=== PATIENT | male | born 1955 ===

== ENCOUNTER 2021-09-11 07:58 | Day surgery (SDC) | payer OTHER ==
[~2021-09-11] VITALS: Ht 172.7 cm; Wt 61.4 kg
[2021-09-11] MEDS ORDERED: FLOMAX 0.40.4 MG/CAP PO (08:33)
[2021-09-11 08:35] VITALS: BP 130/86; PULSE 120; TEMP 97.3
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
[2021-09-11] MEDS ORDERED: NORCO 325 MG-51 TAB PO (13:34)
[2021-09-11 13:50] VITALS: BP 130/82; PULSE 88; TEMP 98
--- NOTE | 2021-09-11 13:50 | NUR ---
COFFEE AND MUFFIN PROVIDED.
[2021-09-11 14:05] VITALS: BP 122/70; PULSE 82
[2021-09-11 14:20] VITALS: BP 124/85; PULSE 94
--- NOTE | 2021-09-11 14:20 | NUR ---
REVIEWED ALL DISCHARGE INSTRUCTIONS AND EDUCATION MATERIAL. PT AND VERBALIZED UNDERSTANDING. DEMONSTRATED HOW TO REINFORCE DRESSING IF NEEDED. INSTRUCTED PT AND TO CALL DR OFFICE IF BLEEDING DOES NOT SLOW AND WHEN TO SEEK MEDICAL ATTENTION. ANSWERED ALL QUESTIONS TO PT AND WIFES SATISFACTION.
--- NOTE | 2021-09-11 15:00 | NUR ---
1350 PT RETURNED TO BAY 1 VIA CART. ALERT AND ORIENTED. POSTOP VITALS STARTED, MONITORS ATTACHED AND ALARMS SET. DRESSING ON LEFT ARM IS CLEAN AND DRY. DRESSING ON BACK HAS TWO SPOTS OF SANGUNEOUS DRAINAGE, ONE DIME SIZE AND ONE HALF DOLLAR SIZE, BOARDERS TRACED. PT DENIES PAIN OR NAUSEA. 1405 PT SITTING LOW SAN. ALERT AND ORIENTED. TOLERATING FOOD AND DRINK WELL. DIME SIZED DRAINAGE ON BACK DRESSING IS NOW SIZE OF A QUARTER. DRESSING REINFORCED WITH 4 X 4 GAZE AND MEDITAPE. 1420 PT UP TO RESTROOM, UNABLE TO VOID. FLUIDS INCREASED AND PT ALLOWED TO REST. NO SIGNS OF DRAINAGE ON BACK REINFORCED DRESSING. 1515 PT UP TO RESTROOM, ABLE TO VOID. NO SIGNS OF DRAINAGE ON BACK DRESSING. IV REMOVED WITHOUT COMPLICATION. PT ALLOWED TO DRESS. 1540 PT TRANSFERED TO PERSONAL VEHICLE VIA WHEEL CHAIR TO BE DRIVEN HOME BY . 14
== END 2021-09-11 15:40 | disposition home or self-care (01) ==
LOC: SDCO 07:58
DX: C44.519 Basal cell carcinoma of skin of other part of trunk (principal); C44.619 Basal cell carcinoma of skin of left upper limb, including shoulder; L98.429 Non-pressure chronic ulcer of back with unspecified severity; K21.9 Gastro-esophageal reflux disease without esophagitis; H91.90 Unspecified hearing loss, unspecified ear; C61 Malignant neoplasm of prostate; R33.8 Other retention of urine; F17.210 Nicotine dependence, cigarettes, uncomplicated
CPT/HCPCS: J0690; J1100; J2370; J2405; J2704; J3010; J7120

== ENCOUNTER 2023-06-26 09:55 | Outpatient (RCR) | payer OTHER ==
[2023-06-26] VITALS (15 sets, daily range): BP systolic 125–161; BP diastolic 71–88; PULSE 66–97; TEMP 97.7–99.3
[~2023-06-26] VITALS: Ht 172.7 cm; Wt 56.6 kg
[~2023-06-26 09:55] MED LIST: FLOMAX 0.40.4 MG/CAP PO; NORCO 325 MG-51 TAB PO; ONE-A-DAY ESSE1 EACH PO
[2023-06-26] MEDS ORDERED: CALCIUM CARBON500 M1 PO (10:47)
[2023-06-26] MEDS ORDERED: ZOFRAN 4MG T4 MG/TAB PO (10:48)
== END 2023-06-26 17:48 | disposition home or self-care (01) ==
LOC: EUO 09:55
DX: C61 Malignant neoplasm of prostate (principal)
CPT/HCPCS: J0612; J1644; J7050; P9016

== ENCOUNTER 2023-07-06 22:21 | Inpatient (IN) | payer OTHER ==
[~2023-07-06] VITALS: Ht 175.3 cm; Wt 62.0 kg
[2023-07-06] VITALS (8 sets, daily range): BP systolic 64–119; BP diastolic 42–59; PULSE 67–112
[~2023-07-06 22:21] MED LIST changes: +CALCIUM CARBON500 M1 PO; +ZOFRAN 4MG T4 MG/TAB PO
[2023-07-06] MEDS ORDERED: LR 1,000 ML IV ONE (22:45)
[2023-07-06] MEDS ORDERED: NS 500 ML IV ONE (22:45)
[2023-07-06] MEDS ORDERED: NS 1,000 ML IV ONE (22:45)
[2023-07-06 22:47] LABS: MEAN CELL VOLUME 85 fl (80.0-100.0); MEAN CORPUSCULAR HGB CONC 33 g/dl (33.0-37.0); RED BLOOD COUNT 2.72 M/mm3 (4.20-5.60); REDCELL DISTRIBUTION WIDTH-CV 21.3 % (11.5-14.5)
[2023-07-06 22:53] LABS: HEMATOCRIT 23.2 % (42.0-52.0); HEMOGLOBIN 7.7 g/dl (13.5-18.0); MEAN CORPUSCULAR HEMOGLOBIN 28 pg (27-31)
[2023-07-06 22:54] LABS: PLATELET COUNT 8 K/mm3 (130-400)
[2023-07-06 22:56] LABS: INR 1.5 (0.8-3.0); PROTHROMBIN TIME 16.2 SECONDS (9.7-12.8)
[2023-07-06 22:59] LABS: PARTIAL THROMBOPLASTIN TIME 26.4 SECONDS (26.0-37.0)
[2023-07-06 23:02] LABS: BILIRUBIN,TOTAL 1.3 mg/dL (0.2-1.2); CREATININE, serum 4.87 mg/dL (0.72-1.25)
[2023-07-06 23:07] LABS: POTASSIUM 6.2 mmol/L (3.5-4.5)
[2023-07-06 23:08] LABS: TROPONIN-I 0.137 ng/mL (0.00-0.033)
[2023-07-06] MEDS ORDERED: fentaNYL 50 MCG/ML 2 ML VIAL IV PRN (23:15)
[2023-07-06] MEDS ORDERED: Ketamine 500 MG/5 ML VIAL IV ONE (23:15)
[2023-07-06] MEDS ORDERED: Rocuronium 50 MG/5 ML Multi-Dose VIAL IV ONE (23:30)
[2023-07-07] VITALS (318 sets, daily range): BP systolic 68–157; BP diastolic 25–95; PULSE 77–135; TEMP 07.5; O2SAT 87–100
[2023-07-07 00:58] LABS: COLLECTION METHOD CATHETER
[2023-07-07 01:17] LABS: ANISOCYTOSIS 3+; BAND 5 % (0-10); LYMPHOCYTE 9 % (20.0-51.0); NEUTROPHILS 83 % (42.0-75.2); PLATELET ESTIMATE DECREASED (NORMAL)
[2023-07-07 01:18] LABS: BURR CELLS 3+; OVALOCYTES 1+
[2023-07-07 01:23] LABS: PH 8.5 (5.0-8.5); URINE APPEARANCE Cloudy (CLEAR/HAZY); URINE COLOR Yellow (YELLOW); URINE GLUCOSE Negative (NEGATIVE); URINE KETONE Negative (NEGATIVE); URINE PROTEIN(semi-quant) 3+ (NEGATIVE)
[2023-07-07 01:24] LABS: URINE BACTERIA Many /hpf (NONE SEEN); URINE BLOOD 3+ (NEGATIVE); URINE NITRATE Negative (NEGATIVE); URINE RBC >50 /hpf (0-2); URINE UROBILINOGEN 0.2 E.U/dL (0.2-1.0)
[2023-07-07 02:09] LABS: CALCIUM 6.7 mg/dL (8.4-10.2); CREATININE, serum 4.6 mg/dL (0.72-1.25)
[2023-07-07] MEDS ORDERED: fentaNYL 50 MCG/ML 2 ML VIAL IV PRN (02:15)
[2023-07-07] MEDS ORDERED: Naloxone 0.4 MG/ML VIAL IV PRN (02:15)
[2023-07-07 02:19] LABS: POTASSIUM 5.9 mmol/L (3.5-4.5)
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
[2023-07-07] MEDS ORDERED: Pantoprazole 40 MG in NS 10 ML IV SCH (02:29)
[2023-07-07] MEDS ORDERED: Dextrose 50% Water 25 GM/50 ML SYRINGE IV ONE ×2 (02:30→11:00)
[2023-07-07] MEDS ORDERED: Sodium Bicarbonate 8.4% 50 MEQ/50 ML SYRINGE IV ONE ×3 (02:30→06:15)
[2023-07-07] MEDS ORDERED: Calcium Gluconate 1,000 MG (4.65 mEq)/10 ML VIAL IV ONE ×2 (02:30→11:00)
[2023-07-07] MEDS ORDERED: Insulin Regular Human (NovoLIN R/HumuLIN R) IV ONE ×2 (02:30→11:00)
[2023-07-07] MEDS ORDERED: Ondansetron 4 MG/2 ML VIAL IV PRN (02:30)
[2023-07-07] MEDS ORDERED: NS 1,000 ML IV SCH ×2 (02:45→06:15)
[2023-07-07] MEDS ORDERED: Glucagon 1 MG VIAL IM PRN (03:00)
[2023-07-07] MEDS ORDERED: Dextrose (Glucose) 15 GM (4 x 3.75 GM) Chewable TABLET PACK PO PRN (03:00)
[2023-07-07] MEDS ORDERED: Dextrose 50% Water 25 GM/50 ML SYRINGE IV PRN (03:00)
[2023-07-07 03:12] LABS: ARTERIAL BLD GAS O2 SATURATION 96.5 % (92-100); ARTERIAL BLD GAS TCO2 CT 14.5; ARTERIAL BLOOD GAS BASE EXCESS -14.4 (-2-2); ARTERIAL BLOOD GAS HCO3 13.3 meq/L (22-26); ARTERIAL BLOOD GAS PCO2 38.6 mmHg (35-45); ARTERIAL BLOOD GAS PO2 108.6 mmHg (80-100)
[2023-07-07 03:14] LABS: ARTERIAL BLOOD GAS pH 7.16 (7.35-7.45)
[2023-07-07] MEDS ORDERED: *Vancomycin Dosing Protocol IV SCH (03:30)
[2023-07-07] MEDS ORDERED: Insulin Aspart (NovoLOG) SQ SCH (04:00)
[2023-07-07] MEDS ORDERED: PREDNISONE1 MG PO (04:09)
[2023-07-07] MEDS ORDERED: CLARITIN 1010 MG/TAB PO (04:28)
[2023-07-07] MEDS ORDERED: COMPAZINE 110 MG/TAB PO (04:28)
[2023-07-07] MEDS ORDERED: FENTANYL 12MCG TD (04:28)
[2023-07-07] MEDS ORDERED: PREDNISONE 5MG5 MG PO (04:29)
[2023-07-07] MEDS ORDERED: DECADRON 4MG TAB4 MG PO (04:29)
[2023-07-07 05:13] LABS: ARTERIAL BLD GAS O2 SATURATION 95.6 % (92-100); ARTERIAL BLD GAS TCO2 CT 16.6; ARTERIAL BLOOD GAS HCO3 15.2 meq/L (22-26); ARTERIAL BLOOD GAS PCO2 44.5 mmHg (35-45); ARTERIAL BLOOD GAS PO2 92.8 mmHg (80-100)
[2023-07-07 05:14] LABS: ARTERIAL BLOOD GAS pH 7.15 (7.35-7.45)
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
--- NOTE | 2023-07-07 07:00 | NUR ---
Report recieved from YAMILKA Vanegas. Reviewed history, labs and IV gtts infusing. PRBC was finishing during report. Pt will recieve 1 unit of platelets. Pt on minimal sedation. Pt turned and has small dime sized dark purple spot on reddend, non-blanchable coccyx. Pt has skin tear to right shoulder, and several dark red bruises across back. Feet are cold, great toe on left foot is dusky. Pulses are 1+. Heels are scaling and flaking. PIV x3. Pt is intubated. Pt on levo for blood pressure support. Will continue with POC.
[2023-07-07] MEDS ORDERED: Vasopressin 20 UNITS in NS 100 ML IV SCH (09:15)
[2023-07-07] MEDS ORDERED: Vasopressin 20 UNITS in NS 100 ML IV PRN ×2 (09:15→10:00)
--- NOTE | 2023-07-07 09:18 | NUR ---
Initial visit; Patient is intubated and sleeping. Ancillary Services Manager offered a prayer at Arnel's bedside for God's healingand God's will to be done.
[2023-07-07] MEDS ORDERED: Sodium Bicarbonate/Water,Steri 1,150 ML IV SCH ×3 (09:30→17:15)
--- NOTE | 2023-07-07 09:45 | NUR ---
Orders to increase sedation and add fentanyl infusing received from Dr. Mancia at bedside.
--- NOTE | 2023-07-07 09:52 | NUR ---
FIRST UNIT OF PLATELETS STARTED. VERFIED BY YAMILKA IBRAHIM. TRANSFUSION STARTED AT 60MLS AND WILL REMAIN IN ROOM FOR FIRST 15 MINUTES.
[2023-07-07 09:54] LABS: MEAN CELL VOLUME 82 fl (80.0-100.0); MEAN CORPUSCULAR HGB CONC 34 g/dl (33.0-37.0); RED BLOOD COUNT 3.81 M/mm3 (4.20-5.60); REDCELL DISTRIBUTION WIDTH-CV 20.3 % (11.5-14.5)
--- NOTE | 2023-07-07 09:57 | NUR ---
ADVANCED ETT FROM 24 @ BOTTOM TEETH TO 27 @ BOTTOM TEETH.
[2023-07-07 10:00] LABS: HEMATOCRIT 31.3 % (42.0-52.0); HEMOGLOBIN 10.7 g/dl (13.5-18.0); MEAN CORPUSCULAR HEMOGLOBIN 28 pg (27-31)
[2023-07-07 10:06] LABS: CALCIUM 6.4 mg/dL (8.4-10.2); CREATININE, serum 4.46 mg/dL (0.72-1.25); MAGNESIUM 2.1 mg/dL (1.6-2.6); POTASSIUM 5.7 mmol/L (3.5-4.5)
[2023-07-07 10:07] LABS: PLATELET COUNT 4 K/mm3 (130-400)
[2023-07-07] MEDS ORDERED: FENTANYL 25 MCG TD (10:23)
[2023-07-07] MEDS ORDERED: fentaNYL 100 ML IV SCH (10:30)
[2023-07-07 10:35] LABS: BAND 6 % (0-10); BURR CELLS 3+; LYMPHOCYTE 4 % (20.0-51.0); METAMYELOCYTE 1 % (0-0); NEUTROPHILS 87 % (42.0-75.2); PLATELET ESTIMATE DECREASED (NORMAL)
[2023-07-07 10:37] LABS: SCHISTOCYTES 1+
--- NOTE | 2023-07-07 11:28 | NUR ---
Patient is currently intubated. SW attempted to reach patient's , Marybeth, P# [phone]. No answer and unable to leave a voicemail.
--- NOTE | 2023-07-07 13:02 | NUR ---
Notifed Dr. Reyes that [facility] was unable to advance PICC on right side and asked if we could use left. Dr. Reyes stated he did not care what side was used. Passed on to [facility].
--- NOTE | 2023-07-07 14:08 | NUR ---
SW was able to reach patient's , Marybeth, at P# [phone]. Marybeth was at the hospital getting food. SAMMIE expressed she would meet with Marybeth in person after Marybeth is able to eat her lunch.
[2023-07-07 14:12] LABS: ARTERIAL BLD GAS O2 SATURATION 99.4 % (92-100); ARTERIAL BLD GAS TCO2 CT 16.8; ARTERIAL BLOOD GAS BASE EXCESS -5.9 (-2-2); ARTERIAL BLOOD GAS HCO3 16.1 meq/L (22-26); ARTERIAL BLOOD GAS pH 7.47 (7.35-7.45)
[2023-07-07 14:14] LABS: ARTERIAL BLOOD GAS PCO2 22.6 mmHg (35-45); ARTERIAL BLOOD GAS PO2 275.5 mmHg (80-100)
[2023-07-07 14:45] LABS: CREATININE, serum 4.14 mg/dL (0.72-1.25); POTASSIUM 5.5 mmol/L (3.5-4.5)
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
[2023-07-07 14:49] LABS: CALCIUM 5.9 mg/dL (8.4-10.2)
[2023-07-07] MEDS ORDERED: LR 1,000 ML IV SCH (17:00)
--- NOTE | 2023-07-07 17:03 | NUR ---
NOT PREFORMED- PT ON 2 PRESSORS, PER DR. ORTIZ
--- NOTE | 2023-07-07 18:10 | NUR ---
2ND UNIT OF PLATELETS COMPLETED. PT TOLERATED PROCEDURE WITHOUT DIFFICULTY. VITAL SIGNS ARE STABLE. PT IS COUGH WHEN SUCTIONING. PUPLIS ARE SLUGGISH,L PUPIL IS SMALLER THAN RIGHT. PT IS MINIMALLY RESPONSIVE BUT PROPOFOL AND FENTANYL HANGING PER ORDERS BY DR. ORTIZ. ATTEMPTING TO TITRATE LEVO PT TOLERATES. FAMILY UPDATED DURING SHIFT AND ALL QUESTIONS ANSWERED.
--- NOTE | 2023-07-07 20:09 | NUR ---
Phone call to ICU telehealth. Spoke with Dr. Bella. BP 105/53, Map 59. Orders received to titrated levophed and vasopressin to SBP goal of equal to or greater than 100.
[2023-07-07 21:18] LABS: ARTERIAL BLD GAS O2 SATURATION 99.1 % (92-100); ARTERIAL BLD GAS TCO2 CT 15.7; ARTERIAL BLOOD GAS BASE EXCESS -7.9 (-2-2); ARTERIAL BLOOD GAS pH 7.42 (7.35-7.45)
[2023-07-07 21:22] LABS: ARTERIAL BLOOD GAS PCO2 23.5 mmHg (35-45); ARTERIAL BLOOD GAS PO2 160.9 mmHg (80-100)
[2023-07-08] VITALS (767 sets, daily range): BP systolic 103–142; BP diastolic 49–84; PULSE 70–88; TEMP 98.6–100.2; O2SAT 72–100
[2023-07-08 04:57] LABS: ARTERIAL BLD GAS O2 SATURATION 98.9 % (92-100); ARTERIAL BLD GAS TCO2 CT 17.4; ARTERIAL BLOOD GAS BASE EXCESS -4.5 (-2-2); ARTERIAL BLOOD GAS HCO3 16.7 meq/L (22-26); ARTERIAL BLOOD GAS pH 7.53 (7.35-7.45)
[2023-07-08 04:58] LABS: ARTERIAL BLOOD GAS PCO2 20.5 mmHg (35-45); ARTERIAL BLOOD GAS PO2 187.2 mmHg (80-100)
--- NOTE | 2023-07-08 05:33 | NUR ---
PT DOES NOT MEET WEANING REQ AT THIS TIME
[2023-07-08 06:18] LABS: MEAN CELL VOLUME 78 fl (80.0-100.0); MEAN CORPUSCULAR HGB CONC 35 g/dl (33.0-37.0); RED BLOOD COUNT 3.19 M/mm3 (4.20-5.60); REDCELL DISTRIBUTION WIDTH-CV 19.9 % (11.5-14.5)
[2023-07-08 06:22] LABS: HEMOGLOBIN 8.8 g/dl (13.5-18.0); MEAN CORPUSCULAR HEMOGLOBIN 28 pg (27-31)
[2023-07-08 06:25] LABS: PLATELET COUNT 3 K/mm3 (130-400)
[2023-07-08 06:37] LABS: ALBUMIN 1.5 gm/dL (3.4-4.8); CREATININE, serum 4.1 mg/dL (0.72-1.25); MAGNESIUM 1.8 mg/dL (1.6-2.6); PHOSPHOROUS 3.1 mg/dL (2.3-4.7); POTASSIUM 5.3 mmol/L (3.5-4.5); TOTAL PROTEIN 4.4 gm/dL (6.2-8.1)
[2023-07-08 06:42] LABS: CALCIUM 5.1 mg/dL (8.4-10.2)
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
[2023-07-08 07:32] LABS: BILIRUBIN,TOTAL 1.8 mg/dL (0.2-1.2)
[2023-07-08 07:43] LABS: ANISOCYTOSIS 3+; BAND 4 % (0-10); EOSINOPHIL 1 % (0-4); LYMPHOCYTE 7 % (20.0-51.0); NEUTROPHILS 84 % (42.0-75.2)
[2023-07-08 07:44] LABS: BURR CELLS 2+; HYPOCHROMIA 1+; MICROCYTOSIS 1+; OVALOCYTES 1+; PLATELET ESTIMATE DECREASED (NORMAL)
--- NOTE | 2023-07-08 08:20 | NUR ---
PT WAS HYPOTENSIVE AT THE START OF SHIFT. MAXED AND VASOPRESSIN AND LEVOPHED. E-CARE WAS NOTIFIED. WILL TITRATED TO SBP INSTEAD OF MAP PER PROVIDERS INSTRUCTIONS. BY THE END OF SHIFT VASOPRESSIN WAS ON HOLD AND LEVOPHED TITRATED DOWN. PT'S HANDS AND FEET COLD. CORE IS WARM. PT MOTTLING ON BLE. REQUESTED LAST RIGHTS IF PT "LOOKS LIKE HE IS PASSING." I SUGGEST TO THE THAT SHE HAVE LAST RIGHTS GIVEN NOW. DISCUSSED WITH FAMILY THAT WE CAN'T GUARANTEE THAT A TAG MACHINE OPERATOR WILL BE AVAILABLE TO GIVE LAST RIGHTS ON SHORT NOTICE. PT STABLE AT THIS TIME. NO SIGN OF DISTRESS AT THIS TIME.
--- NOTE | 2023-07-08 08:33 | NUR ---
CRITICAL PLT OF 3 AND CA OF 5.[address] REAVES AT 0645. NO NEW ORDERS AT THIS TIME.
--- NOTE | 2023-07-08 09:55 | NUR ---
Follow-up; Patient resting, Sales And Service Advisor spoke with nurse who said she would let Sales And Service Advisor know when Arnel's family came back to his room so Sales And Service Advisor might visit with them. Sales And Service Advisor thanked nurses for being so attentive to Arnel's needs.
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
--- NOTE | 2023-07-08 15:26 | NUR ---
Palliative care consult with Marybeth and daughter. In depth discussion about the condition of the patient as well as his mulitple organ failures. Discussed care options of comfort care versus continuing the care we are currently providing. Discussed in depth the process of comfort measures and the options that are available for pain and anxiety management as well as comfort. Also discussed the ventilator, blood pressure support medications, hemodialysis, positive blood cultures with multiple organisms, and the ECHO. ECHO results were not available at the time of the consult. But we did discuss what the provider was looking for with the ECHO. after multiple questions asked and answered. The patient is requiring a significant amount of levophed as well as vasopressin. requested family meeting so her adult children could be present. Will schedule with Dr. Tray Mancia and Dr. Wick tomorrow 07/09/23 at 0900.
[2023-07-08 15:34] LABS: ARTERIAL BLD GAS O2 SATURATION 97.9 % (92-100); ARTERIAL BLD GAS TCO2 CT 16.7; ARTERIAL BLOOD GAS BASE EXCESS -6.7 (-2-2); ARTERIAL BLOOD GAS PO2 114.3 mmHg (80-100); ARTERIAL BLOOD GAS pH 7.45 (7.35-7.45)
[2023-07-08 15:41] LABS: ARTERIAL BLOOD GAS PCO2 23.6 mmHg (35-45)
--- NOTE | 2023-07-08 18:06 | NUR ---
SAMMIE attended a pallative care consult with ICU supervisor phosphatic fertilizer, Leela, patient's and patient's daughter. Family is considering their options and would like to have another pallative care consult with both doctors tomorrow morning. Leela scheduled this meeting with Dr. Mancia and Dr. Wick tomorrow at 9 am.
--- NOTE | 2023-07-08 18:28 | NUR ---
SEDATION VACATION NOT DONE AT THIS TIME PT IS ON MINIMAL LEVELS OF SEDATION.
--- NOTE | 2023-07-08 20:05 | NUR ---
PT RECEIVING PLATELETS AT THIS TIME. PER REPORT PT HAS BEEN STABLE. VASOPRESSIN ON. WEANING LEVOPHED. AND DAUGHTER AT BEDSIDE. THIS NURSE DISCUSSED WITH AND DAUGHTER GIVING PATIENT PERMISSION. PATIENT PREFERS TO BE CALLED [facility] AND LIKES SHIKHA PER FAMILY. NO SIGN OF DISTRESS AT THIS TIME.
[2023-07-09] VITALS (1305 sets, daily range): BP systolic 77–155; BP diastolic 49–87; PULSE 69–86; TEMP 96.9–99; O2SAT 80–100
[2023-07-09 05:32] LABS: ARTERIAL BLD GAS O2 SATURATION 96.7 % (92-100); ARTERIAL BLD GAS TCO2 CT 16.4; ARTERIAL BLOOD GAS BASE EXCESS -6.9 (-2-2); ARTERIAL BLOOD GAS HCO3 15.7 meq/L (22-26); ARTERIAL BLOOD GAS PO2 90.6 mmHg (80-100); ARTERIAL BLOOD GAS pH 7.46 (7.35-7.45)
[2023-07-09 05:33] LABS: ARTERIAL BLOOD GAS PCO2 22.5 mmHg (35-45)
[2023-07-09 05:44] LABS: MEAN CELL VOLUME 79 fl (80.0-100.0); MEAN CORPUSCULAR HGB CONC 36 g/dl (33.0-37.0); RED BLOOD COUNT 2.72 M/mm3 (4.20-5.60); REDCELL DISTRIBUTION WIDTH-CV 19.8 % (11.5-14.5)
[2023-07-09 05:46] LABS: HEMATOCRIT 21.4 % (42.0-52.0); HEMOGLOBIN 7.7 g/dl (13.5-18.0); MEAN CORPUSCULAR HEMOGLOBIN 28 pg (27-31)
[2023-07-09 05:48] LABS: PLATELET COUNT 4 K/mm3 (130-400)
--- NOTE | 2023-07-09 06:00 | NUR ---
DR REAVES CALLED WITH CRITICAL PLT 4 AND CA 4.8. NO NEW ORDERS AT THIS TIME.
[2023-07-09 06:01] LABS: ALBUMIN 1.4 gm/dL (3.4-4.8); BILIRUBIN,TOTAL 1.7 mg/dL (0.2-1.2); MAGNESIUM 1.7 mg/dL (1.6-2.6); PHOSPHOROUS 3.3 mg/dL (2.3-4.7); POTASSIUM 4.5 mmol/L (3.5-4.5); TOTAL PROTEIN 4.1 gm/dL (6.2-8.1)
[2023-07-09 06:02] LABS: CALCIUM 4.8 mg/dL (8.4-10.2)
[2023-07-09 06:05] LABS: ANISOCYTOSIS 2+; BAND 2 % (0-10); LYMPHOCYTE 6 % (20.0-51.0); MICROCYTOSIS 1+; NEUTROPHILS 89 % (42.0-75.2); PLATELET ESTIMATE DECREASED (NORMAL)
[2023-07-09 06:06] LABS: BURR CELLS 1+; OVALOCYTES 1+; SCHISTOCYTES 1+; TARGET CELLS 1+
[2023-07-09] MEDS ORDERED: NS IV ONE (07:00)
[2023-07-09] MEDS ORDERED: [UNRECOGNIZED DRUG - OTHER] IV ONE (07:00)
[2023-07-09] MEDS ORDERED: CALCIUM GLUCONATE IV ONE (07:00)
--- NOTE | 2023-07-09 07:00 | NUR ---
REPORT RECEIVED FROM YAMILKA SAXENA. PT REMAINS ON VENTILATOR, 7.5 ETT MEASURES 27CM AT TEETH, AC MODE 500 TV, PEEP 5, FI02 30%, RATE 18. OG TO LIS MEASURES 55 AT TEETH. PICC LINE TO L UPPER ARM AND PERIPHERAL IV SITES TO R ARM WNL. RIDLEY IN PLACE TO DEPENDENT DRAINAGE. MULTIPLE BRUISES NOTED TO ALL EXTREMITIES. SKIN TEARS/AREAS OF SHEARING NOTED TO BOTH SHOULDER BLADES, MEPILIEX IN PLACE. MULTIPLE DEEP TISSUE INJURIES/BRUISES NOTED TO ENTIRE BACK. MEPILIEX IN PLACE ON DEEP TISSUE INJURY TO COCCYX. PT ON 2QHR TURN SCHEDULE TO PREVENT FURTHER SKIN BREAKDOWN.
--- NOTE | 2023-07-09 07:09 | NUR ---
REMAINS STABLE ON ROUNDS. LEVOPHED BEING WEANED. NO SIGN OF DISTRESS AT THIS TIME.
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
[2023-07-09] MEDS ORDERED: Haloperidol Lactate 5 MG/ML VIAL IV PRN (15:30)
[2023-07-09] MEDS ORDERED: Atropine 1% Ophth Soln 2 ML BOTTLE SL PRN (15:30)
[2023-07-09] MEDS ORDERED: Morphine 4 MG/ML VIAL IV PRN (15:30)
[2023-07-09] MEDS ORDERED: Morphine Oral Concentrate 20 MG/ML UD SL PRN (15:30)
[2023-07-09] MEDS ORDERED: Scopolamine 1 MG Delivered 3-Day PATCH TD SCH (15:30)
[2023-07-09] MEDS ORDERED: Ondansetron 4 MG/2 ML VIAL IV PRN (15:30)
[2023-07-09] MEDS ORDERED: LORazepam 0.5 MG TAB PO PRN (15:45)
[2023-07-09] MEDS ORDERED: LORazepam 2 MG/ML 1 ML VIAL IV PRN (15:45)
--- NOTE | 2023-07-09 15:45 | NUR ---
PT EXTUBATED PER PALLATIVE CARE\
--- NOTE | 2023-07-09 17:43 | NUR ---
yard warehouse worker attended patient's pallative care meeting with Susan, ICU supervisors, patient's and daughter, Dr. Mancia and Dr. Wick. Family is considering the options and ultimately expressed they do not want the patient to suffer and be uncomfortable. SW and interdisciplinary team gave patient's family time to consider their options. SW was notified that patient's family decided for patient to go to comfort care measures.
[2023-07-10] VITALS (471 sets, daily range): BP systolic 78–82; BP diastolic 47–57; PULSE 112–115; TEMP 96.9–97.2; O2SAT 43–90
--- NOTE | 2023-07-10 09:57 | NUR ---
Patient noted to be asystolic. Confirmed asystole with two RN's. Family at bedside and notified. sandblasting supervisor and Hospitalist notified.
--- NOTE | 2023-07-10 10:20 | NUR ---
[facility] notified of patient , referral number [id number], he is not a candidate for bone or tissue, but [facility] will be calling us.
--- NOTE | 2023-07-10 10:49 | NUR ---
[facility] declined, we may release the body to the home. Family has chosen [facility] in [place], [place] ([phone].)
--- NOTE | 2023-07-10 14:40 | NUR ---
[facility] was contacted.
== END 2023-07-10 15:15 | disposition expired | DRG 698 ==
LOC: COL.ER 22:21 → ICU 07-07 02:00
PROVIDERS: Emergency Medicine; Internal Medicine Pulmonary Disease; Physician Assistant; ADMIT Hospitalist
PROC: 02HV33Z Insertion of Infusion Device into Superior Vena Cava, Percutaneous Approach (ICD-10-PCS; principal; 2023-07-07)
DX: T83.511A Infection and inflammatory reaction due to indwelling urethral catheter, initial encounter (principal); A41.9 Sepsis, unspecified organism; R65.21 Severe sepsis with septic shock; J96.01 Acute respiratory failure with hypoxia; N17.9 Acute kidney failure, unspecified; C79.82 Secondary malignant neoplasm of genital organs; Y84.6 Urinary catheterization as the cause of abnormal reaction of the patient, or of later complication, without mention of misadventure at the time of the procedure; D64.9 Anemia, unspecified; D69.6 Thrombocytopenia, unspecified; E87.5 Hyperkalemia
CPT/HCPCS: C1751; C1892; C9113; J0612; J1815; J1956; J2060; J2270; J2543; J2598; J2704; J3010; J3370; J7030; J7040; J7050; J7060; J7120; P9016; P9035; Q3014